=== PATIENT | female | born 1995 | race Two or more races ===

== ENCOUNTER 2025-05-12 17:09 | Emergency (ER) | payer MEDICAID, OTHER ==
[~2025-05-12] VITALS: Ht 157.5 cm; Wt 55.0 kg
--- NOTE | 2025-05-12 17:52 | ED.PDOC ---
Saqib. trauma (HPI) HPI Comments 30 y/o F, presents to the ED for CC of right lower extremity pain s/p fall. Patient states, that her dogs where running towards her x2days ago causing her to fall and twist her right foot and ankle. Following trauma patient c/o of pain and swelling to her right ankle and foot. Patient denies any head trauma or blood loss. Patient states difficulty bearing weight. Vital signs were stable. 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 Family History Family History: Unknown Social History Smoker: Non-Smoker Alcohol: Denies ETOH Use Drugs: Denies Drug Use Lives In: Home Constitutional: denies: chills, diaphoresis, fatigue, fever, malaise, sweats, weakness, others EENTM: denies: blurred vision, double vision, ear bleeding, ear discharge, ear drainage, ear pain, ear ringing, eye pain, eye redness, hearing loss, mouth pain, mouth swelling, nasal discharge, nose bleeding, nose congestion, nose pain, photophobia, tearing, throat pain, throat swelling, voice changes, others Respiratory: denies: cough, hemoptysis, orthopnea, SOB at rest, shortness of breath, SOB with excertion, stridor, wheezing, others Cardiovascular: denies: chest pain, dizzy spells, diaphoresis, Dyspnea on exertion, edema, irregular heart beat, left arm pain, lightheadedness, palpitations, PND, syncope, others Gastrointestinal: denies: abdomen distended, abdominal pain, blood streaked bowels, constipated, diarrhea, dysphagia, difficulty swallowing, hematemesis, melena, nausea, poor appetite, poor fluid intake, rectal bleeding, rectal pain, vomiting, others Genitourinary: denies: abnormal vagina bleeding, burning, dyspareunia, dysuria, flank pain, frequency, hematuria, incontinence, pain, , vagina disch arge, urgency, others Neurological: denies: dizziness, fainting, headache, left sided numbness, left sided weakness, numbness, paresthesia, pre-existing deficit, right sided numbness, right sided weakness, seizure, speech problems, tingling, tremors, weakness, others Musculoskeletal: reports: others (right foot and right ankle pain); denies: back pain, gout, joint pain, joint swelling, muscle pain, muscle stiffness, neck pain Integumetry: denies: bruises, change in color, change in hair/nails, dryness, laceration, lesions, lumps, rash, wounds, others Allergic/Immunocompromised: denies: Difficulty Healing, Frequent Infections, Hives, Itching, others Hematologic/Lymphatic: denies: anemia, blood clots, easy bleeding, easy bruising, swollen glands, others Endocrine: denies: excessive hunger, excessive sweating, excessive thirst, excessive urination, flushing, intolerance to cold, intolerance to heat, unexplained weight gain, unexplained weight loss, others Psychiatric: denies: anxiety, bipolar disorder, depression, hopeless, panic disorder, schizophrenia, sleepless, suicidal, others All Other Systems: Reviewed and Negative Physical Exam General Appearance: Moderate Distress (Due to right ankle and right foot pain), Normal HEENT: Normal ENT Inspection, Pharynx Normal, TMs Normal Neck: Full Range of Motion, Non-Tender, Normal, Normal Inspection Respiratory: Chest Non-Tender, Lungs Clear, No Accessory Muscle Use, No Respiratory Distress, Normal Breath Sounds Cardiovascular: No Edema, No JVD, No Murmur, No Gallop, Normal Peripheral Pulses, Regular Rate/Rhythm Breast Exam: Deferred Gastrointestinal: No Organomegaly, Non Tender, No Pulsatile Mass, Normal Bowel Sounds, Soft Genitalia: Deferred Pelvic: Deferred Rectal: Deferred Extremities: Other (Diffuse tenderness to palpation throughout the right ankle and lateral aspect of the right foot. Edema noted with possible mild developing ecchymosis at the inferior aspect of the lateral malleolus. Significant reduced range of motion.) Neurologic: Alert, Normal Affect, Normal Mood, No Sensory Deficits Cerebellar Function: NOT DONE Reflexes: NOT DONE Skin: Dry, Normal Color, Warm Lymphatic: No Adenopathy Was a procedure done? Was a procedure done?: No Differential Diagnosis Multiple Trauma: Fractures, Other (Ankle sprain, foot sprain) X-Ray, Labs, Meds, VS Vital Signs Date Time Temp Pulse Resp B/P (MAP) Pulse Ox O2 Delivery O2 Flow Rate FiO2 05/12/25 17:11 97.0 98 18 140/86 98 97.0 X-Ray, Labs, Meds, VS Comment All studies performed the ED were evaluated by me personally. Imaging studies confirmed a 5th metatarsal fracture. Patient was put in a short posterior right leg splint and given crutches. Patient has been advised to follow up with the primary care provider for continued discussions related to today's visit. Patient should receive a cast in the next 5-7 days. Time of 1ST Reevaluation: 18:32 Reevaluation 1ST: Improved Consultation: PCP Patient Education/Counseling: Diagnosis, Treatment Family Education/Counseling: Diagnosis, Treatment, No Family Present Departure 1 Departure Time of Disposition: 18:32 Impression: Primary Impression: Fracture of fifth metatarsal bone of right foot Disposition: HOME / SELF CARE / HOMELESS Condition: Stable Additional Instructions: Patient has been advised to utilize pain medication as needed. Patient should follow up with the primary care provider in the next five days for re-evaluation and probable cast placement. e-Prescriptions Hydrocodone-Acetaminophen (Hydrocodone Bitartrate/AC 5-325 mg) 1 Tab Tab 1 TAB PO Q6HP PRN, #20 TAB Prov: MARILUZ CAREY PAC 05/12/25 Ibuprofen Micronized (Ibuprofen) 800 Mg Tab 800 MG PO Q8HP PRN, #20 TAB Prov: MARILUZ CAREY PAC 05/12/25 Discharged With: Self, Friend Critical Care Note Critical Care Time?: No Stability Stability form required: No Heart Score Heart Score: Heart Score Response (Comments) Value History N/A 0 EKG N/A 0 Age N/A 0 Risk Factors N/A 0 Troponin N/A 0 Total 0 I personally scribed for MARILUZ CAREY PAC ([email or web address]) on 05/12/25 at 17:52. Electronically submitted by Leidy Faria ([email or web address]). MARILUZ CAREY PAC May 12, 2025 17:52
--- NOTE | 2025-05-12 18:14 | DVH ---
Indication: Trauma/twist Technique: XY R FOOT 3 VIEW XRAYXY Comparison: None FINDINGS/IMPRESSION: Fracture of the proximal 5th metatarsal bone with proximal articular extension. Surrounding soft tiss ue edema. Dorsal right foot soft tissue edema.
--- NOTE | 2025-05-12 18:14 | DVH ---
Indication: Trauma/twist Technique: XY R ANKLE 3 VIEWXY Comparison: None FINDINGS/IMPRESSION: Fracture of the base of the 5th metatarsal bone with proximal articular extension. Soft tissue edema surrounding the lateral malleolus.
[2025-05-12] MEDS ORDERED: IBUP-1455 PO (18:33)
[2025-05-12] MEDS ORDERED: HYDR-4902 PO (18:33)
[2025-05-12] MEDS: KETOROLAC TROMETH 60MG/2ML VIAL IM ONE (19:28)
[2025-05-12] MEDS: HYDROcodone-ACET 5/325MG TAB PO ONE (19:29)
[2025-05-12 19:34] VITALS: BP 136/88; PULSE 93; RESP 18; TEMP 97.7
[2025-05-12 19:37] VITALS: O2SAT 100
== END 2025-05-12 18:35 | disposition home or self-care (01) ==
LOC: ER 17:09
DX: S92.351A Displaced fracture of fifth metatarsal bone, right foot, initial encounter for closed fracture (principal); W18.39XA Other fall on same level, initial encounter; Y93.02 Activity, running; Y93.89 Activity, other specified; Y99.8 Other external cause status
CPT/HCPCS: 29515; 73610; 73630; J1885